=== PATIENT | female | born 1995 | race African-American/Black ===

== ENCOUNTER 2021-11-04 13:21 | Inpatient (IN) | payer MEDICAID ==
[~2021-11-04] VITALS: Ht 167.6 cm; Wt 63.6 kg
[2021-11-04 14:00] LABS: HEMATOCRIT 37.3 % (37.0-47.0); HEMOGLOBIN 11.9 g/dl (12.5-16.0); MEAN CELL VOLUME 82 fl (80.0-100.0); MEAN CORPUSCULAR HEMOGLOBIN 26 pg (27-31); MEAN CORPUSCULAR HGB CONC 32 g/dl (33.0-37.0); MEAN PLATELET VOLUME 9.1 fl (7.4-10.4); PLATELET COUNT 495 K/mm3 (130-400); RED BLOOD COUNT 4.55 M/mm3 (4.10-5.30); REDCELL DISTRIBUTION WIDTH-CV 12.5 % (11.5-14.5)
[2021-11-04 14:08] LABS: COLLECTION METHOD CLEAN CATCH
[2021-11-04 14:19] LABS: ALBUMIN 3.4 gm/dL (3.5-5.0); BILIRUBIN,TOTAL 0.6 mg/dL (0.2-1.2); CALCIUM 9.5 mg/dL (8.4-10.2); CREATININE, serum 0.78 mg/dL (0.57-1.11); POTASSIUM 3.7 mmol/L (3.5-4.5); TOTAL PROTEIN 8.1 gm/dL (6.2-8.1)
[2021-11-04 14:19] LABS: MUCOUS Present (NOT PRESENT); PH 6 (5-8); SQUAMOUS EPITHELIAL 0-2 /hpf (0-10); URINE APPEARANCE Clear (CLEAR/HAZY); URINE BACTERIA None Seen /hpf (NONE SEEN); URINE BILIRUBIN Negative (NEGATIVE); URINE BLOOD 2+ (NEGATIVE); URINE COLOR Yellow (YELLOW); URINE GLUCOSE Negative (NEGATIVE); URINE KETONE 2+ (NEGATIVE); URINE LEUKOCYTE ESTERASE Negative (NEGATIVE); URINE NITRATE Negative (NEGATIVE); URINE PROTEIN(semi-quant) 1+ (NEGATIVE); URINE UROBILINOGEN Negative (NEGATIVE)
[2021-11-04 14:24] LABS: BAND 2 % (0-10); BASOPHIL 1 % (0-2); LYMPHOCYTE 7 % (20.0-51.0); NEUTROPHILS 85 % (42.0-75.2); PLATELET ESTIMATE INCREASED (NORMAL)
[2021-11-04] MEDS ORDERED: NEXPLANON68 MG ID (18:22)
[2021-11-04 18:24] VITALS: BP 122/79; PULSE 111; TEMP 99.4
--- NOTE | 2021-11-04 18:47 | NUR ---
PT ARRIVED TO ROOM FROM ED @ 1815 VIA ER CART. PT IS NOW LAYING IN BED SUPINE, RATES ABDOMINAL PAIN 10/10, IS TEARY. PT DENIES NAUSEA, EDUCATED ON PRIVACY PASSWORD ET CALL LIGHT. REPORT HAS BEEN GIVEN TO KM ALMENDAREZ.
[2021-11-04 20:00] VITALS: BP 105/59; PULSE 109; TEMP 100.9
[2021-11-05] VITALS (8 sets, daily range): BP systolic 95–132; BP diastolic 61–80; PULSE 94–111; TEMP 98.2–100.7
--- NOTE | 2021-11-05 02:51 | NUR ---
Pt states that after having PRN percocet and ambulating to the bathroom that she felt slightly dizzy. Pt BP was WNL. This nurse explained that narcotics can make you feel drowsy. Pt ate very little of her dinner on 11/04/21 and expressed that she had not eaten anything else since the morning of 11/04/21; which consisted of 1/2 of an apple and a few saltines. I provided some juice, applesauce and crackers to the pt. Pt expresses understanding in regards to affects of meds. Pt denies having pain at this time.
--- NOTE | 2021-11-05 05:54 | NUR ---
Pt educated on the purpose of SCD's. Pt does not feel comfortable wearing them due to her ambulating often to the bathroom and tucking her feet in bed. Pt expressed understanding, SCD wraps left in pt room.
[2021-11-05 05:58] LABS: MEAN CELL VOLUME 82 fl (80.0-100.0); MEAN CORPUSCULAR HGB CONC 32 g/dl (33.0-37.0); MEAN PLATELET VOLUME 9.3 fl (7.4-10.4); PLATELET COUNT 409 K/mm3 (130-400); REDCELL DISTRIBUTION WIDTH-CV 12.6 % (11.5-14.5)
[2021-11-05 06:17] LABS: HEMATOCRIT 30.3 % (37.0-47.0); MEAN CORPUSCULAR HEMOGLOBIN 26 pg (27-31)
[2021-11-05 06:20] LABS: HEMOGLOBIN 9.7 g/dl (12.5-16.0)
[2021-11-05 06:28] LABS: ALBUMIN 2.7 gm/dL (3.5-5.0); BILIRUBIN,TOTAL 0.7 mg/dL (0.2-1.2); C-REACTIVE PROTEIN 18.51 mg/dL (0.00-0.50); CALCIUM 8.5 mg/dL (8.4-10.2); CREATININE, serum 0.68 mg/dL (0.57-1.11); POTASSIUM 3.7 mmol/L (3.5-4.5); TOTAL PROTEIN 6.4 gm/dL (6.2-8.1)
[2021-11-05 07:20] LABS: EOSINOPHIL 1 % (0-4); HYPOCHROMIA 2+; LYMPHOCYTE 8 % (20.0-51.0); NEUTROPHILS 81 % (42.0-75.2); PLATELET ESTIMATE INCREASED (NORMAL)
--- NOTE | 2021-11-05 12:41 | NUR ---
PT RESTING IN BED, HAS TAKEN A SHOWER ET ORDERED LUNCH. PERCOCET HAS BEEN GIVEN FOR PAIN, PT STATES THAT IT DOES PROVIDE RELIEF, DENIES NAUSEA @ THIS TIME. IVF INFUSING INTO PERIPHERAL IV. PT IS UP INDEPENDENTLY IN ROOM, DENIES NEEDS. CALL LIGHT WITHIN REACH.
--- NOTE | 2021-11-05 16:22 | NUR ---
Corrosion Technician met with patient for intake assessment/discharge planning. Patient presents alert and oriented, willing to discuss. She informs she lives at house in [place] with her spouse Sukumar and their 4 children ages two through twelve. 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 "Just me and my spouse" don't. She informs she is independent with her ADLs/IADLs and has no anticipated needs for discharge. She reports no use of any durable medical equipment, including oxygen. She states she would like to establish primary care when she can obtain insurance, and she accepts a brochure for the [facility] where she can obtain primary care while waiting. Patient states would like a hospital personal financial advisor to follow up with her to help her inquire aout her Medicaid status. She accepts a financial supervisor application and cards for prescription assistance ([facility] [employer]), noting she likes to get he medications at [facility]. Patient states no interest in completing a DPOA-HC or Advanced Directive at this time; she is confortable with her spouse as her next-of-kin to make any needed decisions on her behalf. She states some fear in discussing the topic, wondering if her medical condition has deteriorated. This Corrosion Technician assures patient that her health condition has not deteriorated to prompt the conversation, but is a standard discussion for all patients 18 and older. She verbalizes understanding. She is encouraged to inquire about her current health status with her nurse and treating physician. Patient verbalizes understanding and she expresses no needs outside of financial support for healthcare and Medicaid application follow up. Corrosion Technician requesting follow up with personal financial advisor to assist in her follow up to Medicaid to determine benefits and financial coverage of services while hospitalized. Social Work continues to follow. *Discharge plan: to home with spouse*
[2021-11-06 03:41] VITALS: BP 108/68; PULSE 88; TEMP 98.9
[2021-11-06 06:47] LABS: MEAN CELL VOLUME 81 fl (80.0-100.0); MEAN CORPUSCULAR HGB CONC 32 g/dl (33.0-37.0); MEAN PLATELET VOLUME 9.9 fl (7.4-10.4); PLATELET COUNT 437 K/mm3 (130-400); RED BLOOD COUNT 3.69 M/mm3 (4.10-5.30); REDCELL DISTRIBUTION WIDTH-CV 12.4 % (11.5-14.5)
[2021-11-06 06:50] LABS: HEMATOCRIT 29.7 % (37.0-47.0); HEMOGLOBIN 9.5 g/dl (12.5-16.0); MEAN CORPUSCULAR HEMOGLOBIN 26 pg (27-31)
[2021-11-06 07:43] VITALS: BP 123/73; PULSE 94; TEMP 98.7
[2021-11-06 07:49] LABS: BAND 1 % (0-10); HYPOCHROMIA 1+; LYMPHOCYTE 6 % (20.0-51.0); NEUTROPHILS 85 % (42.0-75.2); PLATELET ESTIMATE INCREASED (NORMAL)
[2021-11-06 12:00] VITALS: BP 125/73; PULSE 84; TEMP 99
--- NOTE | 2021-11-06 12:21 | NUR ---
Mell: No alevism preference Situation: Production Weigher stopped by room on rounds Background: PT was resting and content Assessment: PT has moved from [place] to [place] recently. Recommendation: sheet metal layout worker will follow up as needed
--- NOTE | 2021-11-06 16:08 | NUR ---
Irasema retail selling floor leader, notified TRUPTI that the patient informed her that she applied for Medicaid at [facility]. TRUPTI notified Rylie with Financial Counseling and asked that she check the status of the patient's Medicaid application.
[2021-11-06 16:33] VITALS: BP 127/64; PULSE 81; TEMP 98.7
--- NOTE | 2021-11-06 17:15 | NUR ---
PATIENT DOING WELL. VITALS STABLE THIS SHIFT. PAIN CONTROLLED WELL WITH MEDS NEEDED. NO NVD. AFEBRILE. PAIN TO RIGHT LOWER QUADRANT. ABLE TO AMBULATE ON OWN. A&O X4. CONTINENT. PLAN FOR POSSIBLE SURGICAL INTERVENTION EXPLAINED TO PATIENT.
--- NOTE | 2021-11-06 18:00 | NUR ---
PT. TEMP 100.4. DR. ROLAND NOTIFED. TYELNOL ORDER PLACED. SEE EMAR.
[2021-11-06 19:52] VITALS: BP 109/66; PULSE 97; TEMP 100.4
--- NOTE | 2021-11-06 20:40 | NUR ---
ASSESSMENT COMPLETE. PT. IS LYING IN BED. A&O. COMPLAINING OF PAIN 7/10 TO ABDOMEN. DILIUD WAS GIVEN (SEE EMAR). FLUIDS INFUSING TO RIGHT AC. WATER REFREASHED. NO FURHTER NEEDS. CALL LIGHT IN REACH.
[2021-11-06 23:33] VITALS: BP 134/70; PULSE 88; TEMP 99.3
[2021-11-07 03:48] VITALS: BP 131/87; PULSE 92; TEMP 99.4
--- NOTE | 2021-11-07 03:51 | NUR ---
PT. IS ROCKING BACK AND FORTH AND CRYING IN PAIN. PAIN 10/[address] CRAFT NOTIFED. SEE EMAR FOR NEW ORDERS.
[2021-11-07 05:55] LABS: MEAN CELL VOLUME 82 fl (80.0-100.0); MEAN CORPUSCULAR HGB CONC 32 g/dl (33.0-37.0); MEAN PLATELET VOLUME 9.4 fl (7.4-10.4); PLATELET COUNT 460 K/mm3 (130-400); RED BLOOD COUNT 3.51 M/mm3 (4.10-5.30); REDCELL DISTRIBUTION WIDTH-CV 12.7 % (11.5-14.5)
[2021-11-07 06:03] LABS: HEMATOCRIT 28.8 % (37.0-47.0); HEMOGLOBIN 9.1 g/dl (12.5-16.0); MEAN CORPUSCULAR HEMOGLOBIN 26 pg (27-31)
[2021-11-07 06:57] LABS: LYMPHOCYTE 7 % (20.0-51.0); NEUTROPHILS 87 % (42.0-75.2)
[2021-11-07 06:58] LABS: HYPOCHROMIA 2+; PLATELET ESTIMATE INCREASED (NORMAL)
[2021-11-07 07:24] VITALS: BP 128/76; PULSE 75; TEMP 98.8
--- NOTE | 2021-11-07 11:13 | NUR ---
PATIENT ALERT AND ORIENTED X3. VSS. PATIENT HERE FOR RLQ PAIN, EXPLORATORY LAP PROCEDURE SCHEDULED FOR TOMORROW. CONSENT SIGNED AND ON CHART. ASSESSMENT PERFORMED. AM MEDS ADMINISTERED. PATIENT REPORTS PAIN 11/10. PAIN MEDICATION REQUESTED. PATIENT INSTRUCTED OF NPO AT [facility]. PATIENT STATES UNDERSTANDING. IV TO R AC WITH LR AT 75 RUNNING. PATIENT REPORTS NAUSEA, REQUESTS MEDICATION. PATIENT RESTING IN BED WITH CALL LIGHT NEAR.
[2021-11-07 11:14] VITALS: BP 140/77; PULSE 83; TEMP 100
[2021-11-07 15:54] VITALS: BP 129/73; PULSE 85; TEMP 100.5
[2021-11-07 20:14] VITALS: BP 127/78; PULSE 78; TEMP 99.3
--- NOTE | 2021-11-07 20:16 | NUR ---
ASSESSMENT COMPLETE. PT. SITTING UP IN BED. A&O. COMPLAINING OF PAIN OF 6/10 TO ABD. MORPHINE GIVEN (SEE EMAR). IV FLUIDS INFUSING TO RIGHT AC. CALL LIGHT IN REACH. NO FURHTER NEEDS AT THIS TIME.
[2021-11-08] VITALS (14 sets, daily range): BP systolic 113–136; BP diastolic 58–79; PULSE 73–106; TEMP 98.2–102.6
[2021-11-08 06:42] LABS: MEAN CELL VOLUME 79 fl (80.0-100.0); MEAN CORPUSCULAR HGB CONC 32 g/dl (33.0-37.0); MEAN PLATELET VOLUME 9.5 fl (7.4-10.4); PLATELET COUNT 501 K/mm3 (130-400); RED BLOOD COUNT 3.46 M/mm3 (4.10-5.30); REDCELL DISTRIBUTION WIDTH-CV 12.7 % (11.5-14.5)
[2021-11-08 06:46] LABS: HEMATOCRIT 27.3 % (37.0-47.0); HEMOGLOBIN 8.8 g/dl (12.5-16.0); MEAN CORPUSCULAR HEMOGLOBIN 25 pg (27-31)
[2021-11-08 07:09] LABS: CALCIUM 8.3 mg/dL (8.4-10.2); CREATININE, serum 0.63 mg/dL (0.57-1.11); POTASSIUM 3.6 mmol/L (3.5-4.5)
--- NOTE | 2021-11-08 10:09 | NUR ---
PATIENT ALERT AND ORIENTED X3. VSS. PATIENT DENIES PAIN. IV TO RIGHT AC WITH LR HANGING, READY FOR SURGERY. ASSESSMENT PERFORMED.
--- NOTE | 2021-11-08 10:15 | NUR ---
PATIENT OFF OF FLOOR FOR SURGERY.
--- NOTE | 2021-11-08 15:10 | NUR ---
Rylie, with financial counseling, notified Madeleine, social staff worker, that the patient was approved for Medicaid and the Medicaid has been backdated to September.
--- NOTE | 2021-11-08 15:19 | NUR ---
PATIENT UP FROM SURGERY AROUND 1430. PATIENT DENIES PAIN. POST OP VITALS STARTED. IV FLUIDS HUNG. PATIENT IN ROOM WITH CALL LIGHT NEAR.
[2021-11-09 00:38] VITALS: BP 111/64; PULSE 83; TEMP 99.6
[2021-11-09 03:59] VITALS: BP 118/72; PULSE 95; TEMP 99.3
--- NOTE | 2021-11-09 04:02 | NUR ---
Assessment and medication adminstration completed without difficulty. Pt is A&Ox4. Epidural still in place, pt educated on how to use the button to deliver medication. Alegria in place and draining, urine is yellow and with no signs of sediment. Midline incision is CDI. All other needs met at this time, call light within reach.
[2021-11-09 06:13] LABS: BASO % 0.1 % (0.0-2.0); EOS # 0.3 K/mm3 (0.0-0.7); EOS % 1.7 % (0.0-4.0); GRAN # 11.7 K/mm3 (1.4-6.5); GRAN % 81.4 % (42.2-75.2); LYMPH % 6.9 % (20.0-51.0); MEAN CELL VOLUME 81 fl (80.0-100.0); MEAN CORPUSCULAR HGB CONC 32 g/dl (33.0-37.0); MEAN PLATELET VOLUME 9.3 fl (7.4-10.4); MONO # 1.3 K/mm3 (0.1-0.6); MONO % 9.2 % (1.7-9.3); PLATELET COUNT 515 K/mm3 (130-400); RED BLOOD COUNT 3.69 M/mm3 (4.10-5.30); REDCELL DISTRIBUTION WIDTH-CV 12.7 % (11.5-14.5)
[2021-11-09 06:20] LABS: HEMATOCRIT 29.9 % (37.0-47.0); HEMOGLOBIN 9.6 g/dl (12.5-16.0); MEAN CORPUSCULAR HEMOGLOBIN 26 pg (27-31)
[2021-11-09 06:31] LABS: CALCIUM 7.9 mg/dL (8.4-10.2); CREATININE, serum 0.65 mg/dL (0.57-1.11); POTASSIUM 3.4 mmol/L (3.5-4.5)
[2021-11-09 07:47] VITALS: BP 112/70; PULSE 102; TEMP 99.6
--- NOTE | 2021-11-09 10:12 | NUR ---
Initial visit; Patient thanked Mail Inserter for stopping and offering God's blessings and making sure she is doing better and knows of the availability of spiritual care at our Hospital. Patient was receptive to Mail Inserter keeping her in her prayers.
[2021-11-09 11:53] VITALS: BP 115/70; PULSE 97; TEMP 101.2
--- NOTE | 2021-11-09 14:11 | NUR ---
PT RESTING IN BED WITH EYES CLOSED, HAS DONE SO MOST OF DAY. EPIDURAL IN PLACE, HOB ELEVATED. DONG CATHETER IS ALSO IN PLACE. IVF INFUSING INTO PERIPHERAL IV. PT REPORTED BEGINNING TO HAVE FLATULENCE THIS MORNING. PT IS TOLERATING CLEAR LIQUIDS WELL, NO NAUSEA, STATES THAT PAIN IS TOLERABLE. TYLENOL PO HAS BEEN GIVEN FOR FEVER. CALL LIGHT WITHIN REACH.
[2021-11-09 16:18] VITALS: BP 107/59; PULSE 91; TEMP 99.3
--- NOTE | 2021-11-09 17:32 | NUR ---
PT RESTING IN BED, ALERT, REQUESTS A WARM BLANKET. PT STATES THAT ABDOMINAL PAIN IS IMPROVED, RATES 4/10, EPIDURAL REMAINS IN PLACE. IVF INFUSING.
[2021-11-09 20:00] VITALS: BP 120/72; PULSE 107; TEMP 100.1
[2021-11-10] VITALS (7 sets, daily range): BP systolic 107–157; BP diastolic 64–73; PULSE 79–105; TEMP 97.9–99.8
[2021-11-10 06:30] LABS: BASO % 0.2 % (0.0-2.0); EOS # 0.4 K/mm3 (0.0-0.7); EOS % 2.8 % (0.0-4.0); GRAN # 10.5 K/mm3 (1.4-6.5); GRAN % 76.5 % (42.2-75.2); LYMPH # 1.5 K/mm3 (1.2-3.4); LYMPH % 10.6 % (20.0-51.0); MEAN CELL VOLUME 79 fl (80.0-100.0); MEAN CORPUSCULAR HGB CONC 32 g/dl (33.0-37.0); MEAN PLATELET VOLUME 9.2 fl (7.4-10.4); MONO # 1.3 K/mm3 (0.1-0.6); MONO % 9.3 % (1.7-9.3); PLATELET COUNT 500 K/mm3 (130-400); REDCELL DISTRIBUTION WIDTH-CV 12.7 % (11.5-14.5)
[2021-11-10 06:35] LABS: HEMATOCRIT 26.8 % (37.0-47.0); HEMOGLOBIN 8.6 g/dl (12.5-16.0); MEAN CORPUSCULAR HEMOGLOBIN 25 pg (27-31)
--- NOTE | 2021-11-10 07:01 | NUR ---
Pt has been resting quietly in bed throughout the shift. Pt has had no complaints of pain and states that she has had no issues with her epidural. Pt did have an episode of nausea, PRN zofran was given and was successful in combating her nausea. All other needs met at this time, call light within reach.
--- NOTE | 2021-11-10 08:52 | NUR ---
PT IN BED, HOB ELEVATED, SLEEPING. EPIDURAL ET DONG CATHETER IN PLACE. URINE IS KRISHAN ET CLEAR. PT AWAKENS EASILY TO NAME, RESPIRATIONS UNLABORED. PT STATES THAT PAIN IS IMPROVED TODAY, RATES 4/10, DENIES NAUSEA. IVF INFUSING INTO PERIPHERAL IV, DENIES NEEDS. CALL LIGHT WITHIN REACH.
--- NOTE | 2021-11-10 10:34 | NUR ---
TRUPTI met with the patient to follow up. The patient states that she is doing alright. She states that plan is still to return home with her family upon discharge. She had no questions or concerns for TRUPTI at this time.
--- NOTE | 2021-11-10 11:34 | NUR ---
ANESTHESIA HAS BEEN IN ROOM WITH PT ET DCED EPIDURAL. SITE IS COVERED WITH BANDAID.
--- NOTE | 2021-11-10 22:30 | NUR ---
PATIENT ALERT AND ORIENTED. MIDLINE CDI WITH KELLE INTACT AND CUP MACHINE OPERATOR. C/O MODERATE PAIN 7/10, PRN PERCOCET GIVEN WITH LITTLE RELIEF, FOLLOWED BY PRN TYLENOL AND TORADOL. HS MEDS ALSO GIVEN PER EMAR. IVF TO R FA IV. AMBULATED TO BATHROOM AND VOIDED CLEAR YELLOW URINE WITHOUT ISSUE.
[2021-11-11 04:04] VITALS: BP 112/74; PULSE 81; TEMP 98.1
[2021-11-11 07:57] LABS: ALBUMIN 2.1 gm/dL (3.5-5.0); BILIRUBIN,TOTAL 0.3 mg/dL (0.2-1.2); CALCIUM 8.4 mg/dL (8.4-10.2); CREATININE, serum 0.54 mg/dL (0.57-1.11); POTASSIUM 3.4 mmol/L (3.5-4.5); TOTAL PROTEIN 5.3 gm/dL (6.2-8.1)
[2021-11-11 08:00] VITALS: BP 119/74; PULSE 79; TEMP 98.5
--- NOTE | 2021-11-11 08:00 | NUR ---
PATIENT IS ORIENTED BUT VERY DROWSY THIS AM. VSS. C/O MOD POST OP ABD PAIN AND REQUESTING SOMETHING FOR PAIN. GAVE PRN IV TORADOL AND PO PERCOCET. ABD IS DISTENDEND, TENDER, SOFT AND WITH POSITIVE BOWL SOUNDS. PATIENT IS PASSING GAS AND REPORTS BM. DIET ADVANCED TO LOW FIBER BUT PATIENT REPORTS DECREASED APPETTITE. NO C/O N/V AT THIS TIME. IV FLUIDS INFUSING VIA PUMP INTO RIGHT FORARM IV. AM MEDS GIVEN. HEAD TO TOE ASSESSMENT COMPLETE. SCD'S TO BLE. PATIENT WANTING TO REST. LIGHTS TURNED OFF, CALL LIGHT IN REACH, AND DOOR CLOSED. PATIENT SLEEPING.
[2021-11-11 08:03] LABS: BASO % 0.2 % (0.0-2.0); EOS # 0.5 K/mm3 (0.0-0.7); EOS % 5.1 % (0.0-4.0); GRAN # 7.3 K/mm3 (1.4-6.5); GRAN % 76.7 % (42.2-75.2); MEAN CELL VOLUME 79 fl (80.0-100.0); MEAN CORPUSCULAR HGB CONC 33 g/dl (33.0-37.0); MEAN PLATELET VOLUME 8.9 fl (7.4-10.4); MONO # 0.7 K/mm3 (0.1-0.6); MONO % 7.5 % (1.7-9.3); PLATELET COUNT 538 K/mm3 (130-400); RED BLOOD COUNT 3.38 M/mm3 (4.10-5.30); REDCELL DISTRIBUTION WIDTH-CV 12.6 % (11.5-14.5)
[2021-11-11 08:04] LABS: HEMATOCRIT 26.7 % (37.0-47.0); HEMOGLOBIN 8.7 g/dl (12.5-16.0); MEAN CORPUSCULAR HEMOGLOBIN 26 pg (27-31)
[2021-11-11] MEDS ORDERED: AMOXICILLIN 8751 TAB PO (10:21)
[2021-11-11] MEDS ORDERED: PERCOCET 325 MG1 TA2 PO (10:22)
--- NOTE | 2021-11-11 10:50 | NUR ---
Follow-up visit; Patient thanked Police Liaison Officer for offering the Love of Randy and saying a blessing for her. Police Liaison Officer will continue to look in on patient who appears to be quite ill.
[2021-11-11 12:00] VITALS: BP 121/81; PULSE 76; TEMP 97.6
--- NOTE | 2021-11-11 12:50 | NUR ---
PATIENT CALLED OUT REPORTING SHE BECAME NAUSEATED AND VOMITED ON HER BED SHEETS. PATIENT'S IV ALREADY TAKEN OUT IN ANTICIPTION OF PENDING DISCHARGE AND PER PATIENT REQUEST. CALLED , SEE ORDERS. GAVE PO ZOFRAN AND WILL MONITOR PATIENT, POSSIBLY OVER NIGHT. WILL MONITOR. PATIENT ALSO REPORTING INCREASED ABD PAIN FROM VOMITING, GAVE PRN PERCOCET PER REQUEST. PATIENT CLEANED UP AND REPOSITIONED TO COMFORT UP IN BED. APPLIED ANOTHER WARM BLANKET TO ABD. PATIENT RESTING WITH NO NEEDS. CALL LIGHT IN REACH. NO VISITORS AT BEDSIDE YET TODAY.
--- NOTE | 2021-11-11 14:20 | NUR ---
PATIENT VOMITED AGAIN AND DOESN'T FEEL WELL. CALLED , SEE ORDERS. PATIENT TO STAY OVERNIGHT, DC'D CANCELED.
--- NOTE | 2021-11-11 15:50 | NUR ---
ICU NOW AT BEDSIDE TO ATTEMPT IV PLACEMENT AFTER MEDICAL AND RESTORATION TECHNICIAN'S WERE UNABLE TO GET A LINE. PATIENT HAS VOMITED 4 TIMES AND CONTINUES TO COMPLAIN OF NAUSEA. NOTIFIED, NO NEW ORDERS. SCUBA INSTRUCTOR NOTIFIED AND ANOTHER ICU NURSE TO ASSESS IV ACCESS.
[2021-11-11 16:00] VITALS: BP 118/73; PULSE 73; TEMP 98.1
--- NOTE | 2021-11-11 17:05 | NUR ---
ANESTHESIA NOW AT BEDSIDE WITH US TO PLACE DIFFICULT IV. ANESTHESIA PROVIDER ABLE TO START 22 GAUZE IV INTO LEFT AC. IV FLUIDS NOW INFUSING AT 75CC/HR. PATIENT ALSO GIVEN PRN REGLAN IV. DURING VOMITING EPISODES PATIENT WAS INCONT. OF BOWL/BLADDER AND WAS ASSISTED TO GET CLEANED UP AND REPOSITIONED TO COMFORT UP IN BED. PATIENT STILL C/O SOME NAUSE, NO EMESIS AT THIS TIME. WILL MONITOR.
--- NOTE | 2021-11-11 17:30 | NUR ---
PATIENT HAD ANOTHER EPISODE OF N/V FOLLOWING IV DOSE OF REGLAN. NURSING EDUCATED ABOUT TIME EFFECTIVENESS. IV FLUIDS INFUSING. PATIENT NOT TAKING IN ANYTHING ORALLY RIGHT NOW. PROVIDER NOTIFIED.
[2021-11-11 19:07] VITALS: BP 108/55; PULSE 97; TEMP 98.7
[2021-11-12 00:03] VITALS: BP 133/70; PULSE 103; TEMP 98.5
--- NOTE | 2021-11-12 00:16 | NUR ---
PATIENT VERY DROWSY AND C/O NAUSEA AT SHIFT CHANGE. IV ZOFRAN GIVEN. PATIENT REFUSED PO HS MEDS DUE TO NAUSEA. IV TORODAL GIVEN FOR ABD PAIN. MIDLINE IS CDI WITH KELLE INTACT AND OPEN TO AIR. IV TO R AC WITH IVF INFUSING. HAS HAD SEVERAL GREEN WATERY BMS AND IS PASSING GAS.
[2021-11-12 04:01] VITALS: BP 121/71; PULSE 100; TEMP 98.4
--- NOTE | 2021-11-12 06:45 | NUR ---
Report received, assumed care for day shift.
[2021-11-12 06:54] LABS: BASO % 0.2 % (0.0-2.0); EOS # 0.3 K/mm3 (0.0-0.7); EOS % 2.7 % (0.0-4.0); GRAN # 8.6 K/mm3 (1.4-6.5); GRAN % 78.4 % (42.2-75.2); LYMPH # 1.2 K/mm3 (1.2-3.4); LYMPH % 10.9 % (20.0-51.0); MEAN CELL VOLUME 80 fl (80.0-100.0); MEAN CORPUSCULAR HGB CONC 32 g/dl (33.0-37.0); MEAN PLATELET VOLUME 8.9 fl (7.4-10.4); MONO # 0.8 K/mm3 (0.1-0.6); MONO % 7.2 % (1.7-9.3); PLATELET COUNT 588 K/mm3 (130-400); REDCELL DISTRIBUTION WIDTH-CV 12.6 % (11.5-14.5)
[2021-11-12 06:56] LABS: HEMATOCRIT 28.1 % (37.0-47.0); MEAN CORPUSCULAR HEMOGLOBIN 26 pg (27-31)
[2021-11-12 07:15] LABS: CALCIUM 8.3 mg/dL (8.4-10.2); CREATININE, serum 0.59 mg/dL (0.57-1.11); POTASSIUM 3.4 mmol/L (3.5-4.5)
[2021-11-12 07:40] VITALS: BP 127/83; PULSE 79; TEMP 98.3
--- NOTE | 2021-11-12 08:30 | NUR ---
Assessment complete. A&Ox4. Denies nausea/shortness of breath. Rating pain 6/10 on pain scale to lower abdomen-described as constant throbbing. Percocet given per dr order. Midline incision-edges well approximated-andry intact. No drainage noted. D5NS@75ml/hr to left AC 20g-infusing without difficulty. Plan of care discussed for this shift to include meds/pain control/calling for questions/concerns. Verbalizes understanding. Call light in reach. Will monitor.
[2021-11-12 11:49] VITALS: BP 107/75; PULSE 70; TEMP 98.4
--- NOTE | 2021-11-12 14:42 | NUR ---
Discharge instructions given both verbal and handwritten. Discussed s/s of infection/home medications/incision care/f/u appt. Verbalizes understanding/denies questions or concerns. IV to left AC-22g-DCd at this time-cath intact.
--- NOTE | 2021-11-12 14:54 | NUR ---
Escorted off floor in wheelchair by KELLY Copeland in stable condition. Spouse at ED enterance for pickling operator.
== END 2021-11-12 14:55 | disposition home or self-care (01) | DRG 331 ==
LOC: COL.ER 13:21 → SURG 17:17
PROVIDERS: Emergency Medicine; Obstetrics & Gynecology; Surgery; ADMIT Surgery
PROC: 0DTH0ZZ Resection of Cecum, Open Approach (ICD-10-PCS; principal; 2021-11-08 10:00)
PROC: 0WJG4ZZ Inspection of Peritoneal Cavity, Percutaneous Endoscopic Approach (ICD-10-PCS; 2021-11-08 10:00)
DX: K35.32 Acute appendicitis with perforation, localized peritonitis, and gangrene, without abscess (principal); N70.91 Salpingitis, unspecified; D64.9 Anemia, unspecified; G89.18 Other acute postprocedural pain; R11.2 Nausea with vomiting, unspecified; N83.201 Unspecified ovarian cyst, right side; Z53.31 Laparoscopic surgical procedure converted to open procedure; Z90.49 Acquired absence of other specified parts of digestive tract; Z87.440 Personal history of urinary (tract) infections; Z23 Encounter for immunization
CPT/HCPCS: A4314; A9284; G0378; J0690; J0696; J1100; J1170; J1650; J1885; J2270; J2405; J2704; J2765; J3010; J7042; J7120; Q9967

== ENCOUNTER 2022-08-02 10:18 | Emergency (ER) | payer MEDICAID ==
[~2022-08-02] VITALS: Ht 165.1 cm; Wt 58.2 kg
[~2022-08-02 10:18] MED LIST: AMOXICILLIN 8751 TAB PO; NEXPLANON68 MG ID; PERCOCET 325 MG1 TA2 PO
[2022-08-02 10:25] VITALS: BP 109/74; TEMP 98.5
[2022-08-02] MEDS ORDERED: ZOVIRAX400 MG PO (10:42)
[2022-08-02 10:53] VITALS: PULSE 91
== END 2022-08-02 10:53 | disposition home or self-care (01) ==
LOC: COL.ER 10:18
DX: B00.2 Herpesviral gingivostomatitis and pharyngotonsillitis (principal); Z28.310 Unvaccinated for COVID-19